=== PATIENT | male | born 1940 | race Caucasian/White ===

== ENCOUNTER 2018-02-20 13:53 | Emergency (ER) | payer OTHER ==
[2018-02-20 14:45] LABS: Absolute Monocytes 0.7 K/uL (0.1-1.3); Basophils % 0.2 % (0-1.3); Eosinophils % 1.5 % (0-4.4); Hematocrit 36.6 % (39.6-49.0); Lymphocytes % 18.6 % (15.3-44.8); MCV 87.2 fL (80-100); MPV 9.3 fL (7.6-11.3); Monocytes % 6.7 % (3.3-12.3); RBC Red Blood Cell Count 4.19 M/uL (4.33-5.43)
[2018-02-20 14:48] LABS: Protime INR 1.08
[2018-02-20] MEDS ORDERED: MEPERIDINE HCL 50 MG/ML AMP ONE ×3 (14:57→17:35)
--- NOTE | 2018-02-20 14:59 | RAD REPORT ---
EXAM DESCRIPTION: RAD - Hip Right 2 View - 02/20/2018 2:50 pm CLINICAL HISTORY: Fall from ladder, pelvic and hip pain COMPARISON: None. FINDINGS: AP and frog-leg views of the right hip were obtained. There is no fracture or dislocation . No AVN or focal femoral head abnormality. Imaged portions of the right hemipelvis show no acute fi ndings. Metallic seeds are present from prostate cancer treatment. Vein harvesting surgical clips see n in the medial thigh IMPRESSION: Negative right hip examination for acute findings.
--- NOTE | 2018-02-20 15:00 | RAD REPORT ---
EXAM DESCRIPTION: RAD - Hip Left 2 View - 02/20/2018 2:50 pm CLINICAL HISTORY: Fall, left hip pain COMPARISON: None. FINDINGS: AP and frogleg views of the left hip were obtained. There is no fracture or dislocation. N o acute or destructive bony process seen. No AVN or focal femoral head abnormality. Imaged left dalton pelvis shows no acute finding. Sacral ala is intact. No soft tissue abnormality. Blayne present from prostate cancer treatment. IMPRESSION: Negative left hip examination for acute or significant findings.
--- NOTE | 2018-02-20 15:01 | RAD REPORT ---
EXAM DESCRIPTION: RAD - Pelvis - 02/20/2018 2:50 pm CLINICAL HISTORY: Fall, pelvic pain COMPARISON: None. TECHNIQUE: AP imaging of the pelvis was obtained. FINDINGS: No fracture of the pelvis seen. Minimal SI joint degenerative changes are present. Lower l umbar degenerative change seen. Bilateral sacral ala appear to be intact. Prostate surgical changes a re evident. No suspicious soft tissue finding. IMPRESSION: Negative pelvis for acute or significant finding.
[2018-02-20 15:06] LABS: BUN Blood Urea Nitrogen 16 mg/dL (7-18); Bicarbonate 28 mmol/L (21-32); Glucose Level 113 mg/dL (74-106); Potassium 4.3 mmol/L (3.5-5.1); Sodium Level 140 mmol/L (136-145)
[2018-02-20] MEDS ORDERED: DERMABOND SKIN ADHESIVE TOP ONE (15:45)
--- NOTE | 2018-02-20 15:59 | RAD REPORT ---
EXAM DESCRIPTION: CT - Abdomen Pelvis W Contrast - 02/20/2018 3:32 pm CLINICAL HISTORY: Fall, right-sided abdominal and pelvic pain COMPARISON: None. TECHNIQUE: Biphasic, helical CT imaging of the abdomen and pelvis was performed following 100 ml non -ionic IV contrast. No oral contrast given. All CT scans are performed using dose optimization technique as appropriate and may include automated exposure control or mA/KV adjustment according to patient size. FINDINGS: Mild atelectasis changes are present with no pneumothorax or pleural effusion. There is ev idence for old trauma change to the lower ribcage on the right. No acute rib fracture identified. The liver, spleen, and pancreas show no suspicious findings. Cholecystectomy clips are present. No bi liary tree dilatation. Symmetric renal function is seen with no hydronephrosis or suspicious renal mass. Bilateral cortical and parapelvic cysts are present. An acute renal parenchymal process not suspected. No suspicious adr enal finding. No urinary bladder abnormality. Numerous surgical clips are present presumed to be from prostatectomy. These may also be seeds from treatment. Moderately large hiatal hernia is present. Gastric surgical changes are present that are part of the herniated portion. An acute gastric process is not seen. No acute large or small bowel finding. The a ppendix is normal. The patient has very prominent sigmoid diverticulosis without an acute component. No free air, free fluid or inflammatory stranding. No hernia, mass or bulky lymphadenopathy. L4 burst fracture is present. Comminuted fracture fragments involves the body of L4. There is approxi mately 60% loss in height centrally. Posterior wall protrudes posteriorly into the central canal caus ing spinal stenosis to 7 mm. The left lamina is fractured. Patient has prominent facet joint degenera tive change at this level. Remaining lumbar and lower thoracic vertebrae are normal in height. Multip le levels show degenerative disc disease. This is most pronounced at L5-S1. Sacral ala are intact. Pe lvis, hip joints and proximal femur is also intact. Findings telephoned to Jae in the emergency department 3:56 p.m. IMPRESSION: L4 burst fracture with comminution of the L4 body and retropulsion of the posterior wall into the central canal. L4 body is collapsed 60% and spinal stenosis to 7 mm present. Left lamina is fractured. No injury to the solid abdominal viscera or bowel.
--- NOTE | 2018-02-20 16:41 | EDPHYS ---
Physician Documentation [facility] Name: Jair Louis Age: 77 yrs Sex: Male : 1940 Arrival Date: 02/20/2018 Time: 13:58 Bed 8 Private MD: ED Physician James Fitzgerald HPI: 02/20 14:42 This 77 yrs old Male presents to ER via EMS with complaints of Fall Injury. rn 14:42 Details of fall: The patient fell from a height, from a ladder, approximately 7 feet. rn Onset: The symptoms/episode began/occurred just prior to arrival. Associated injuries: The patient sustained injury to the low back, right hip. Severity of symptoms: At their worst the symptoms were moderate, in the emergency department the symptoms are unchanged. The patient has not experienced similar symptoms in the past. The patient has not recently seen a physician. Reports lost balance while on ladder, landed on feet, then fell backward and landed on buttocks, reports low back and buttocks pain, did not hit head, no LOC, remembers all events. No foot pain.. Historical: - Allergies: 14:17 Morphine; ss 14:17 Stadol; ss 14:17 Sulfa (Sulfonamide Antibiotics); ss - Immunization history:: Adult Immunizations up to date. - Social history:: Smoking status: Patient/guardian denies using tobacco. - Immunization history: Last tetanus immunization: unknown. - Ebola Screening: : Patient denies exposure to infectious person Patient denies travel to an Ebola-affected area in the 21 days before illness onset. - Family history:: not pertinent. - Hospitalizations: : No recent hospitalization is reported. ROS: 14:42 Constitutional: Negative for fever, chills, and weight loss, Eyes: Negative for injury, rn pain, redness, and discharge, Neck: Negative for injury, pain, and swelling, Cardiovascular: Negative for chest pain, palpitations, and edema, Respiratory: Negative for shortness of breath, cough, wheezing, and pleuritic chest pain, Abdomen/GI: Negative for abdominal pain, nausea, vomiting, diarrhea, and constipation, Back: + low back pain and injury MS/Extremity: + right hip pain Skin: Negative for injury, rash, and discoloration, Neuro: Negative for headache, weakness, numbness, tingling, and seizure. Exam: 14:42 Constitutional: This is a well developed, well nourished patient who is awake, alert, rn appears slightly uncomfortable Head/Face: Normocephalic, atraumatic. Eyes: Pupils equal round and reactive to light, extra-ocular motions intact. Lids and lashes normal. Conjunctiva and sclera are non-icteric and not injected. Cornea within normal limits. Periorbital areas with no swelling, redness, or edema. Neck: Trachea midline, no thyromegaly or masses palpated, and no cervical lymphadenopathy. Supple, full range of motion without nuchal rigidity, or vertebral point tenderness. No Meningismus. Cardiovascular: Regular rate and rhythm with a normal S1 and S2. No gallops, murmurs, or rubs. Normal PMI, no JVD. No pulse deficits. Respiratory: Lungs have equal breath sounds bilaterally, clear to auscultation and percussion. No rales, rhonchi or wheezes noted. No increased work of breathing, no retractions or nasal flaring. Abdomen/GI: Soft, non-tender, with normal bowel sounds. No distension or tympany. No guarding or rebound. No evidence of tenderness throughout. Back: no spinal tenderness, + perilumbar tenderness, no stepoff MS/ Extremity: Pulses equal, no cyanosis. Neurovascular intact. Full, normal range of motion. Equal circumference. mild pain with ROM right hip. Neuro: Awake and alert, GCS 15, oriented to person, place, time, and situation. Cranial nerves II-XII grossly intact. Motor strength 5/5 in all extremities. Sensory grossly intact. Vital Signs: 13:55 BP 150 / 83; Pulse 68; Resp 18; Temp 97.6; Pulse Ox 98% on R/A; Weight 94.8 kg; Height ss 6 ft. 2 in. (187.96 cm); Pain 10/10; 14:55 BP 162 / 88; Pulse 68; Resp 18; Pulse Ox 100% on R/A; sg 15:55 BP 147 / 89; Pulse 72; Resp 17; Pulse Ox 98% on R/A; Pain 6/10; sg 13:55 Body Mass Index 26.83 (94.80 kg, 187.96 cm) [place] Coma Score: 13:55 Eye Response: spontaneous(4). Verbal Response: oriented(5). Motor Response: obeys ss commands(6). Total: 15. 14:55 Eye Response: spontaneous(4). Verbal Response: oriented(5). Motor Response: obeys sg commands(6). Total: 15. 15:55 Eye Response: spontaneous(4). Verbal Response: oriented(5). Motor Response: obeys sg commands(6). Total: 15. Trauma Score (Adult): 13:55 Eye Response: spontaneous(1); Verbal Response: oriented(1); Motor Response: obeys ss commands(2); Systolic BP: > 89 mm Hg(4); Respiratory Rate: 10 to 29 per min(4); [place] Score: 15; Trauma Score: 12 14:55 Eye Response: spontaneous(1); Verbal Response: oriented(1); Motor Response: obeys sg commands(2); Systolic BP: > 89 mm Hg(4); Respiratory Rate: 10 to 29 per min(4); [place] Score: 15; Trauma Score: 12 15:55 Eye Response: spontaneous(1); Verbal Response: oriented(1); Motor Response: obeys sg commands(2); Systolic BP: > 89 mm Hg(4); Respiratory Rate: 10 to 29 per min(4); Johanny Score: 15; Trauma Score: 12 MDM: 13:58 Patient medically screened. rn 16:36 Differential diagnosis: contusion, fracture, sprain, strain. Data reviewed: vital rn signs, nurses notes, radiologic studies, CT scan, plain films, and as a result, I will admit patient. Counseling: I had a detailed discussion with the patient and/or guardian regarding: the historical points, exam findings, and any diagnostic results supporting the discharge/admit diagnosis, radiology results, the need to transfer to another facility, for higher level of care, [facility] does not immediately have the required specialist. Admission orders: after a detailed discussion of the patient's condition and case, the admit orders are written by me. ED course: Accepted for transfer to [facility] for burst fracture L4 with retropulsion of fragments, NV intact distally, no sign of spinal cord injury. . 02/20 14:00 Order name: CBC with Diff; Complete Time: 15:08 rn 02/20 14:00 Order name: Basic Metabolic Panel; Complete Time: 15: rn 02/20 14:00 Order name: Protime (+inr); Complete Time: 15:08 rn 02/20 14:00 Order name: Ptt, Activated; Complete Time: 15: rn 02/20 14:00 Order name: XRAY Pelvis; Complete Time: 15:08 rn 02/20 14:00 Order name: XRAY Hip RIGHT 2 view; Complete Time: 15:08 rn 02/20 14:00 Order name: IV Start; Complete Time: 14:46 rn 02/20 14:00 Order name: XRAY Hip LEFT 2 view; Complete Time: 15: rn 02/20 14:00 Order name: CT Abd/Pelvis - W/Contrast; Complete Time: 16:01 rn 02/20 15:55 Order name: Dermabond; Complete Time: 16:40 sg 02/20 15:55 Order name: Wound Care; Complete Time: 15:56 sg Administered Medications: 14:55 Drug: Demerol 50 mg Route: IVP; Site: right antecubital; sg 15:50 Drug: Demerol 50 mg Route: IVP; Site: right antecubital; sg 16:47 CANCELLED (Other Intervention Used): Demerol 75 mg IM once sg 17:40 Drug: Demerol 75 mg Route: IVP; Site: right antecubital; sg Disposition: 02/20/18 16:40 Transfer ordered to [facility]. Diagnosis is Fracture of fourth lumbar vertebra. - Reason for transfer: Higher level of care. - Accepting physician is . - Condition is Stable. - Problem is new. - Symptoms have improved. Signatures: Dispatcher [employer] EDWI Scott Cortez RN RN sg Nieto, Roman, MD MD rn Smirch, Shelby, RN RN ss Corrections: (The following items were deleted from the chart) 16:47 16:46 Demerol 75 mg IM once ordered. rn sg 17:51 16:40 02/20/2018 16:40 Transfer ordered to [facility]. sg Diagnosis is Fracture of fourth lumbar vertebra. Reason for transfer: Higher level of care. Accepting physician is . Condition is Stable. Problem is new. Symptoms have improved. rn
--- NOTE | 2018-02-20 16:41 | ER ---
Nurse's Notes [facility] Name: Jair Louis Age: 77 yrs Sex: Male : 1940 Arrival Date: 02/20/2018 Time: 13:58 Bed 8 Private MD: Diagnosis: Fracture of fourth lumbar vertebra Presentation: 02/20 13:55 Presenting complaint: Patient states: Lost balance on top of a ladder and fell approx ss 6-7 feet, 30-45 minutes ago. Patient reports that he fell onto feet then backwards onto bottom, then laid onto his back. c/o R buttock pain. Denies hitting head, LOC. Care prior to arrival: None. Mechanism of Injury: Fall from standing position. approximately 6 feet. Trauma event details: Injury occurred in the [facility], Injury occurred: at home. Injury occurred: February 20, 2018. 13:55 Acuity: CHERELLE 2 ss 13:55 Method Of Arrival: EMS: [facility] ss 13:55 Transition of care: patient was not received from another setting of care. Onset of ss symptoms. Risk Assessment: Do you want to hurt yourself or someone else? Patient reports no desire to harm self or others. Initial Sepsis Screen: Does the patient meet any 2 criteria? No. Patient's initial sepsis screen is negative. Does the patient have a suspected source of infection? No. Patient's initial sepsis screen is negative. Trauma Activation: Alert Physician: ED Physician; Name: Lia; Notified At: 13:59; Arrived At: 13:59 Physician: General Surgeon; Name: ; Notified At: 13:59; Arrived At: Specialty not needed Physician: Radiology; Name: Millie Dupont; Notified At: 13:59; Arrived At: 14:00 Physician: Respiratory; Name: ; Notified At: 13:59; Arrived At: Specialty not needed Physician: Lab; Name: ; Notified At: 13:59; Arrived At: Specialty not needed Historical: - Allergies: 14:17 Morphine; ss 14:17 Stadol; ss 14:17 Sulfa (Sulfonamide Antibiotics); ss - Immunization history:: Adult Immunizations up to date. - Social history:: Smoking status: Patient/guardian denies using tobacco. - Immunization history: Last tetanus immunization: unknown. - Ebola Screening: : Patient denies exposure to infectious person Patient denies travel to an Ebola-affected area in the 21 days before illness onset. - Family history:: not pertinent. - Hospitalizations: : No recent hospitalization is reported. Screenin:55 Abuse screen: Denies threats or abuse. Denies injuries from another. Tuberculosis ss screening: Never had TB. 14:18 Nutritional screening: No deficits noted. Fall Risk Fall in past 12 months (25 points). ss No secondary diagnosis (0 pts). IV access (20 points). Ambulatory Aid- None/Bed Rest/Nurse Assist (0 pts). Gait- Normal/Bed Rest/Wheelchair (0 pts) Mental Status- Oriented to own ability (0 pts). Primary Survey: 13:55 A: Airway: patent, No supplemental oxygen in use on arrival. Oral cavity: clear, ss Trachea midline. Breathing/Chest: Respiratory pattern: regular, Respiratory effort: spontaneous, unlabored, Breath sounds: clear, bilaterally. Chest inspection: symmetrical rise and fall of the chest. Circulation: Cardiac rhythm: sinus rhythm Heart tones present. Pulses: palpable right radial artery, right posterior tibial artery, left radial artery and left posterior tibial artery. Skin color: pink, Skin temperature: warm. Disability Alert. 14:15 Reassessment Breathing/Chest Respiratory pattern Regular Respiratory effort Spontaneous sg Unlabored Breath sounds Clear Chest inspection Symmetrical Circulation Heart tones Present Pulses Palpable Color Pleak Temperature Warm Disability Alert. Secondary Survey: 13:55 HEENT: Head Face No injury/deformity Eyes: No injury or deformity noted. Ears: clear ss Nose: clear Throat: No injury or deformity noted. is clear. Musculoskeletal: Circulation, motion, and sensation intact. Range of motion: intact in all extremities, Swelling absent. Assessment: 13:55 Reassessment: Pt did not arrive with C collar in place or on backboard. C spine cleared ss by Dr. Fitzgerald. Patient denies any head, neck and or upper back pain. General: Appears in no apparent distress. comfortable, Patient is laughing and joking with ER staff and family. . Behavior is calm, cooperative, Denies fever, feeling ill, fatigue, chills. Pain: Complains of pain in right hip, R buttock Pain currently is 10 out of 10 on a pain scale. Quality of pain is described as tender, Pain began suddenly, Is continuous, Aggravated by repositioning, Noted to be grimacing with movement. Neuro: Level of Consciousness is awake, alert, obeys commands, Oriented to person, place, time, situation, Speech is normal, Facial symmetry appears normal. EENT: Nares are clear Oral mucosa is moist. Throat is clear. Cardiovascular: Capillary refill < 3 seconds is brisk in bilateral fingers. Respiratory: Airway is patent Respiratory effort is even, unlabored, Respiratory pattern is regular, symmetrical, Breath sounds are clear bilaterally. GI: Abdomen is non-distended, Patient currently denies abdominal pain, nausea, vomiting. : No signs and/or symptoms were reported regarding the genitourinary system. Derm: Skin is intact, is healthy with good turgor, Skin is dry, Skin is pink, warm \\T\\ dry. normal. Musculoskeletal: Range of motion: intact in all extremities, Swelling. 14:59 Reassessment: Patient appears in no apparent distress at this time. Patient and/or sg family updated on plan of care and expected duration. Pain level reassessed. Patient is alert, oriented x 3, equal unlabored respirations, skin warm/dry/pink. pt family remains at bedside at this time, awaiting CT scan, pt and pt family stated understanding, will continue to monitor. 15:50 Reassessment: Patient appears in no apparent distress at this time. Patient and/or sg family updated on plan of care and expected duration. Pain level reassessed. Patient is alert, oriented x 3, equal unlabored respirations, skin warm/dry/pink. 16:45 Reassessment: Patient appears in no apparent distress at this time. Patient and/or sg family updated on plan of care and expected duration. Pain level reassessed. Patient is alert, oriented x 3, equal unlabored respirations, skin warm/dry/pink. orders to hold Demerol 75 MG IVP until transport team is here per . Neuro: Level of Consciousness is awake, alert, obeys commands, Oriented to person, place, time, situation, Speech is normal, Facial symmetry appears normal, sensation intact in all extremities . Derm: Skin is pink, warm \\T\\ dry. Musculoskeletal: Circulation, motion, and sensation intact. Swelling absent. Vital Signs: 13:55 BP 150 / 83; Pulse 68; Resp 18; Temp 97.6; Pulse Ox 98% on R/A; Weight 94.8 kg; Height ss 6 ft. 2 in. (187.96 cm); Pain 10/10; 14:55 BP 162 / 88; Pulse 68; Resp 18; Pulse Ox 100% on R/A; sg 15:55 BP 147 / 89; Pulse 72; Resp 17; Pulse Ox 98% on R/A; Pain 6/10; sg 13:55 Body Mass Index 26.83 (94.80 kg, 187.96 cm) ss [place] Coma Score: 13:55 Eye Response: spontaneous(4). Verbal Response: oriented(5). Motor Response: obeys ss commands(6). Total: 15. 14:55 Eye Response: spontaneous(4). Verbal Response: oriented(5). Motor Response: obeys sg commands(6). Total: 15. 15:55 Eye Response: spontaneous(4). Verbal Response: oriented(5). Motor Response: obeys sg commands(6). Total: 15. Trauma Score (Adult): 13:55 Eye Response: spontaneous(1); Verbal Response: oriented(1); Motor Response: obeys ss commands(2); Systolic BP: > 89 mm Hg(4); Respiratory Rate: 10 to 29 per min(4); Johanny Score: 15; Trauma Score: 12 14:55 Eye Response: spontaneous(1); Verbal Response: oriented(1); Motor Response: obeys sg commands(2); Systolic BP: > 89 mm Hg(4); Respiratory Rate: 10 to 29 per min(4); [place] Score: 15; Trauma Score: 12 15:55 Eye Response: spontaneous(1); Verbal Response: oriented(1); Motor Response: obeys sg commands(2); Systolic BP: > 89 mm Hg(4); Respiratory Rate: 10 to 29 per min(4); [place] Score: 15; Trauma Score: 12 ED Course: 13:55 Patient has correct armband on for positive identification. Bed in low position. Call ss light in reach. 13:55 Patient maintains SpO2 saturation greater than 95% on room air. Thermoregulation: warm ss blanket given to patient. 13:58 Patient arrived in ED. 13:58 James Fitzgerald MD is Attending Physician. rn 14:06 Triage completed. ss 14:12 Scott Cortez, RN is Primary Nurse. sg 14:17 Arm band placed on right wrist. ss 14:20 Inserted saline lock: 20 gauge in right antecubital area, using aseptic technique. ss ,using aseptic technique. insertion by Shemar Curtis RN Blood collected. 14:48 XRAY Pelvis In Process Unspecified. EDMS 14:48 XRAY Hip RIGHT 2 view In Process Unspecified. EDMS 14:48 XRAY Hip LEFT 2 view In Process Unspecified. EDMS 14:56 Radiology exam delayed due to lab results not completed at this time. (BUN/Creatinine). sj 15:[address] sj 15:26 CT completed. Patient tolerated procedure well. Patient moved back from CT. jj2 15:32 CT Abd/Pelvis - W/Contrast In Process Unspecified. EDMS 16:00 Dressings: Steri strips 1/2 " X 1; palmar aspect of distal phalanx of left thumb sg dermabond x1 to palmar aspect of distal phalanx of left thumb. Wound care: to skin tear located on palmar aspect of distal phalanx of left thumb was cleaned with with and soap and water. 16:03 initiated transfer with Nadine at the [facility]. rolo 16:31 administrative approval given by Nadine Santiago RN Environmental Emergencies Assistant. Dr. Reji seth accepted the patient in transfer/ Pt going to the ER / Report to be given to [phone]. 16:45 No provider procedures requiring assistance completed. ss 17:10 Patient transferred, IV remains in place. intact, No redness/swelling at site. sg 17:11 Awaiting transportation. sg Administered Medications: 14:55 Drug: Demerol 50 mg Route: IVP; Site: right antecubital; sg 15:50 Drug: Demerol 50 mg Route: IVP; Site: right antecubital; sg 16:47 CANCELLED (Other Intervention Used): Demerol 75 mg IM once sg 17:40 Drug: Demerol 75 mg Route: IVP; Site: right antecubital; sg Intake: 16:00 PO: 0ml; Total: 0ml. sg Output: 16:00 Urine: 0ml; Total: 0ml. sg Outcome: 16:40 ER care complete, transfer ordered by MD. laureano 16:44 Transferred by ground EMS to [facility]. ss 16:44 Condition: stable 16:44 Instructed on the need for transfer, safety practices, Demonstrated understanding of instructions, follow-up care. 17:40 Patient's length of stay in the Emergency Department was greater than 2 hours. sg radiology, lab results prior to radiologyPatient's length of stay extended due to 17:51 Patient left the ED. sg Signatures: Dispatcher [employer] EDMS Scott Cortez RN RN sg Jaramillo, Justin jj2 Jones, Susan sj Nieto, Roman, MD MD rn Smirch, Shelby, RN RN ss Botello, Elizabeth eb Corrections: (The following items were deleted from the chart) 14:19 13:55 Pain: Complains of pain in right hip, R buttock Pain currently is 10 out of 10 on ss a pain scale. Pain began suddenly, Is continuous, ss
== END 2018-02-20 17:51 | disposition short-term general hospital (02) ==
LOC: ER 13:53
DX: S32.049A Unspecified fracture of fourth lumbar vertebra, initial encounter for closed fracture (principal); W11.XXXA Fall on and from ladder, initial encounter; Y93.9 Activity, unspecified; Y92.9 Unspecified place or not applicable; Z88.2 Allergy status to sulfonamides; Z88.5 Allergy status to narcotic agent
CPT/HCPCS: 36415; 72170; 73502 ×2; 74177; 80048; 85025; 85610; 85730; 96374; 99285; J2175 ×3; Q9967